=== PATIENT | female | born 1995 | race Caucasian/White ===

== ENCOUNTER 2020-09-22 13:32 | Outpatient (CLI) | payer OTHER, SELFPAY ==
[2020-09-22 14:31] LABS: Basophils Percent Auto 0.5 % (0.2-1.2); Eosinophils Absolute Auto 0.2 K/mm3 (0-0.3); Eosinophils Percent Auto 1.9 % (0-4.4); Hematocrit 39.4 % (37.0-47.0); Hemoglobin 13.2 g/dL (12.0-15.0); Immature Granulocyte Absolute 0.02 K/mm3 (0.00-0.031); Immature Granulocyte Percent A 0.2 % (0-0.5); Lymphocytes Absolute Auto 2.38 K/mm3 (0.9-3.2); Lymphocytes Percent Auto 29.5 % (18.3-44.2); Mean Corpuscular HGB Conc 33.5 g/dl (32-36); Mean Corpuscular Hemoglobin 29.9 pg (26-34); Mean Corpuscular Volume 89.1 fl (80-100); Mean Platelet Volume 9.5 fl (7.4-10.4); Monocytes Absolute Auto 0.5 K/mm3 (0.1-0.6); Neutrophils Percent Auto 61.9 % (45.5-73.1); Platelet Count Result 250 k/mm3 (150-375); Red Blood Count 4.42 M/mm3 (4.2-5.4); Red Cell Distribution Width 12.8 % (11.5-14.5); White Blood Count 8.1 K/mm3 (4.5-10.0)
[2020-09-22 14:35] LABS: Alanine Aminotransferase 52 U/L (4-35); Albumin Level 4.1 g/dL (3.5-5.1); Alkaline Phosphatase 99 U/L (38-126); Anion Gap 6 mmol/L (8-16); Aspartate Amino Transferase 38 U/L (14-36); Bilirubin,Total 0.5 mg/dL (0.2-1.3); Blood Urea Nitrogen 14 mg/dL (7-17); Calcium 8.6 mg/dL (8.4-10.2); Carbon Dioxide 30 mmol/L (22-30); Chloride 105 mmol/L (98-107); Cholesterol 192 mg/dL (0-200); Estimated Glomerular Filt Rate > 60; Glucose 102 mg/dL (65-105); HDL Direct 59 mg/dL; Sodium 141 mmol/L (137-145); Triglycerides 95 mg/dL (<150)
[2020-09-22 14:46] LABS: LDL Cholesterol Direct 105 mg/dL
[2020-09-22 15:26] LABS: Vitamin D 25 Hydroxy 55.1 ng/mL
== END 2020-09-22 13:33 | disposition home or self-care (01) ==
LOC: ANHLAB 13:35
PROVIDERS: PCP Family Medicine; Visit Provider Obstetrics & Gynecology
DX: Z01.419 Encounter for gynecological examination (general) (routine) without abnormal findings (principal)
CPT/HCPCS: 36415; 80053; 80061; 82306; 85025

== ENCOUNTER 2020-10-10 09:29 | Outpatient (CLI) | payer OTHER, SELFPAY ==
[2020-10-10 09:54] LABS: Alanine Aminotransferase 19 U/L (4-35); Albumin Level 4.1 g/dL (3.5-5.1); Alkaline Phosphatase 89 U/L (38-126); Aspartate Amino Transferase 26 U/L (14-36); Bilirubin,Total 0.8 mg/dL (0.2-1.3)
[2020-10-10 11:13] LABS: Hepatitis B Surface Antigen Negative (Negative)
[2020-10-10 11:31] LABS: Hepatitis C Virus Antibody Negative (Negative)
== END 2020-10-10 09:30 | disposition home or self-care (01) ==
PROVIDERS: PCP Family Medicine; Visit Provider Obstetrics & Gynecology
DX: R79.89 Other specified abnormal findings of blood chemistry (principal)
CPT/HCPCS: 36415; 80076; 86803; 87340

== ENCOUNTER 2021-05-19 15:07 | Outpatient (CLI) | payer OTHER, SELFPAY ==
--- NOTE | ~2021-05-19 | US_ITS ---
CORRECTED REPORT EXAMINATION CHANGED TO US OB <= 14 weeks fetus. 06/13/2021 [facility] [place]: US OB <=14 wk fetus DATE: 05/19/2021 16:02 INDICATION: with inconclusive viability during first trimester TECHNIQUE: Real-time pelvic ultrasound utilizing transabdominal probe was performed. The interpreting radiologist was not present for the study. COMPARISON: None. FINDINGS: The uterus measures 12.4 x 6.7 x 5.3 cm. There is an intrauterine gestational sac. A yolk sac and pole are identified. The crown rump length measures 2.5 cm, which correlates with an estimated gestational age of 9 weeks and 1 days. heart motion is identified measuring 179 beats per minute (bpm) by M-mode Doppler. The right ovary measures 3.2 x 2.1 x 2.1 cm. The left ovary measures 3.6 x 2.3 x 1.4 cm. Bilateral anechoic ovarian cysts/follicles measuring 1.7 cm in maximal diameter on the right and 1.5 cm on the left. There is no free fluid in the pelvis. IMPRESSION: 1. Single living fetus with heart rate of 179 bpm. 2. Gestational age by ultrasound of 9 weeks 1 day(s) +/- 6 day(s) with ultrasound estimated date of delivery (ANJU) of 12/21/2021. Reviewed, dictated and finalized at location A. MTDD IMPRESSION: 1. Single living fetus with heart rate of 179 bpm. 2. Gestational age by ultrasound of 9 weeks 1 day(s) +/- 6 day(s) with ultraso und estimated date of delivery (ANJU) of 12/21/2021.
== END 2021-05-19 15:08 | disposition home or self-care (01) ==
LOC: ANHIMG 15:08
PROVIDERS: PCP Family Medicine; Visit Provider Obstetrics & Gynecology
DX: O36.80X0 Pregnancy with inconclusive fetal viability, not applicable or unspecified (principal); Z3A.09 9 weeks gestation of pregnancy
CPT/HCPCS: 76801; 76817

== ENCOUNTER 2021-09-17 07:44 | Outpatient (RCR) | payer OTHER, SELFPAY ==
[2021-09-15 12:10] LABS: Basophils Percent Auto 0.2 % (0.2-1.2); Eosinophils Percent Auto 0.3 % (0-4.4); Hematocrit 35.1 % (37.0-47.0); Hemoglobin 11.5 g/dL (12.0-15.0); Immature Granulocyte Absolute 0.06 K/mm3 (0.00-0.031); Immature Granulocyte Percent A 0.6 % (0-0.5); Lymphocytes Absolute Auto 1.66 K/mm3 (0.9-3.2); Lymphocytes Percent Auto 15.5 % (18.3-44.2); Mean Corpuscular HGB Conc 32.8 g/dl (32-36); Mean Corpuscular Hemoglobin 30.9 pg (26-34); Mean Corpuscular Volume 94.4 fl (80-100); Mean Platelet Volume 9.7 fl (7.4-10.4); Monocytes Absolute Auto 0.6 K/mm3 (0.1-0.6); Monocytes Percent Auto 5.3 % (2.6-8.5); Neutrophils Absolute Auto 8.4 K/mm3 (1.3-6.7); Neutrophils Percent Auto 78.1 % (45.5-73.1); Platelet Count Result 175 k/mm3 (150-375); Red Blood Count 3.72 M/mm3 (4.2-5.4); Red Cell Distribution Width 13.3 % (11.5-14.5); White Blood Count 10.7 K/mm3 (4.5-10.0)
[2021-09-15 12:20] LABS: Glucose 1 Hour PP 50gm Dose 171 mg/dL
[2021-09-17] MEDS: RHO(D) IMMUNE GLOBULIN 300 MCG/2 ML SYRINGE IM (12:25)
== END 2021-09-17 07:45 | disposition home or self-care (01) ==
LOC: ANHLAB 07:44
PROVIDERS: PCP Family Medicine; Visit Provider Obstetrics & Gynecology
DX: Z29.13 Encounter for prophylactic Rho(D) immune globulin (principal); O36.0190 Maternal care for anti-D [Rh] antibodies, unspecified trimester, not applicable or unspecified; Z3A.00 Weeks of gestation of pregnancy not specified
CPT/HCPCS: 36415; 82947; 85025; 85461; 90384; 96372; J2790

== ENCOUNTER 2021-09-19 07:59 | Outpatient (CLI) | payer OTHER, SELFPAY ==
[2021-09-19 08:35] LABS: Glucose Fasting Gestational 74 mg/dL (>/=95)
[2021-09-19 10:12] LABS: Glucose 1 Hour Gest 212 mg/dL (>/=180)
[2021-09-19 11:09] LABS: Glucose 2 Hour Gest 182 mg/dL (>/= 155)
[2021-09-19 11:51] LABS: Glucose 3 Hour Gest 117 mg/dL (>/=140)
== END 2021-09-19 08:00 | disposition home or self-care (01) ==
PROVIDERS: PCP Family Medicine; Visit Provider Obstetrics & Gynecology
DX: R73.09 Other abnormal glucose (principal)
CPT/HCPCS: 36415; 82951; 82952

== ENCOUNTER 2021-10-06 13:00 | Outpatient (RCR) | payer OTHER, SELFPAY ==
[2021-10-05 14:20] VITALS: BMI 25.9
[2021-10-05 14:23] VITALS: BMI 25.9
== END 2021-12-07 10:27 | disposition home or self-care (01) ==
LOC: ANHDMC 13:00
PROVIDERS: PCP Family Medicine; Visit Provider Obstetrics & Gynecology
DX: O24.419 Gestational diabetes mellitus in pregnancy, unspecified control (principal); Z3A.00 Weeks of gestation of pregnancy not specified; Z71.3 Dietary counseling and surveillance; Z71.89 Other specified counseling
CPT/HCPCS: 97802; G0108

== ENCOUNTER 2021-10-12 11:38 | Outpatient (CLI) | payer OTHER, SELFPAY ==
[2021-10-14 14:16] LABS: NIL 0.01 IU/mL; Quantiferon TB Plus, 1T NEGATIVE (NEGATIVE)
== END 2021-10-12 11:39 | disposition home or self-care (01) ==
LOC: ANHLAB 11:41
PROVIDERS: PCP Family Medicine; Visit Provider Family Medicine
DX: Z02.0 Encounter for examination for admission to educational institution (principal); Z11.1 Encounter for screening for respiratory tuberculosis
CPT/HCPCS: 36415; 86480

== ENCOUNTER 2021-11-28 14:15 | Outpatient (CLI) | payer OTHER, SELFPAY ==
[2021-11-28 14:41] LABS: Basophils Percent Auto 0.2 % (0.2-1.2); Eosinophils Percent Auto 0.4 % (0-4.4); Hematocrit 35.5 % (37.0-47.0); Hemoglobin 11.5 g/dL (12.0-15.0); Immature Granulocyte Absolute 0.08 K/mm3 (0.00-0.031); Immature Granulocyte Percent A 0.8 % (0-0.5); Lymphocytes Absolute Auto 1.75 K/mm3 (0.9-3.2); Lymphocytes Percent Auto 18.3 % (18.3-44.2); Mean Corpuscular HGB Conc 32.4 g/dl (32-36); Mean Corpuscular Hemoglobin 29.4 pg (26-34); Mean Corpuscular Volume 90.8 fl (80-100); Mean Platelet Volume 10.7 fl (7.4-10.4); Monocytes Absolute Auto 0.8 K/mm3 (0.1-0.6); Monocytes Percent Auto 7.9 % (2.6-8.5); Neutrophils Absolute Auto 6.9 K/mm3 (1.3-6.7); Neutrophils Percent Auto 72.4 % (45.5-73.1); Platelet Count Result 155 k/mm3 (150-375); Red Blood Count 3.91 M/mm3 (4.2-5.4); White Blood Count 9.5 K/mm3 (4.5-10.0)
[2021-11-28 15:26] LABS: HIV 1/2 Ab P24 Ag Result Negative (Negative)
[2021-11-29 11:53] LABS: Rapid Plasma Reagin Non-Reactive (NonReactive)
== END 2021-11-28 14:16 | disposition home or self-care (01) ==
LOC: ANHLAB 14:17
PROVIDERS: PCP Family Medicine; Visit Provider Obstetrics & Gynecology
DX: Z34.93 Encounter for supervision of normal pregnancy, unspecified, third trimester (principal); Z3A.35 35 weeks gestation of pregnancy
CPT/HCPCS: 36415; 85025; 86592; 86703; G0432

== ENCOUNTER 2021-12-03 07:48 | Outpatient (RCR) | payer OTHER, SELFPAY ==
--- NOTE | 2021-10-19 10:16 | PC.NURSE ---
Dr Villegas notified of decel. Tracing faxed to office for review. US orders received.
--- NOTE | 2021-10-19 11:40 | PC.NURSE ---
Patient turned to L side, monitor adj.
--- NOTE | 2021-10-19 11:42 | PC.NURSE ---
Dr Villegas notified of US results and current tracing. Will pull it up in office and review.
[2021-10-19 11:55] VITALS: BP 147/78; PULSE 82
--- NOTE | 2021-10-19 11:55 | PC.NURSE ---
Dr Villegas here to see patient, tracing reviewed. Patient taken off monitor by Dr Villegas. Ok to dc patient home. Patient to have repeat NST on Saturday.
[2021-10-24 08:20] VITALS: BP 122/63; PULSE 93
[2021-11-28 16:18] VITALS: BP 119/69; PULSE 73
[2021-12-01 14:05] VITALS: BP 114/61; PULSE 70
--- NOTE | ~2021-12-03 | US_ITS ---
EXAMINATION: US OB limited w BPP EXAM DATE: 10/19/2021 11:21 INDICATION: BPP and KIMBERLY, low baseline in office 3rd trimester. TECHNIQUE: Pelvic obstetrical transabdominal sonogram was performed by a technologist. There are mu ltiple grayscale and Doppler images available for interpretation. Comparison is made to prior examina tion from 05/19/2021. FINDINGS: There is a single fetus identified in vertex presentation with a heart rate of 142 beats pe r minute. The placenta is located in the anterior position. There is no sonographic evidence of retr oplacental hemorrhage identified. The amniotic fluid index is 13.2 centimeters, which is normal. BIOPHYSICAL PROFILE (performed by the technologist) breathing (30 sec sustained breathing in 30 minutes): 2 out of 2 movement (3 gross body movements in 30 minutes): 2 out of 2 tone (one episode of vnjfelo-qizxnulrz-rtkjeip limb movement): 2 out of 2 Amniotic fluid pocket (2 cm): 2 out of 2 Total score: 8 out of 8 IMPRESSION: 1. Single fetus with heart rate of 142 bpm. 2. Normal biophysical profile score of 8 out of 8. 3. Normal KIMBERLY 13.2 cm. Reviewed, dictated and finalized at location A.
--- NOTE | ~2021-12-03 | US_ITS ---
EXAMINATION: US OB limited w BPP DATE: 12/01/2021 13:30 INDICATION: Nonreactive nonstress test. Third trimester. TECHNIQUE: Real-time pelvic ultrasound was performed. COMPARISON: Ultrasound 11/28/2021 FINDINGS: There is a single living fetus in vertex presentation. The placenta is fundal. heart rate is 1 48 beats per minute (bpm). The amniotic fluid index is 12.4 cm, which is normal. Biophysical profile performed by the technologist: breathing (30 sec sustained breathing in 30 minutes): 2 out of 2 movement (3 gross body movements in 30 minutes): 2 out of 2 tone (one episode of czqdxvz-mhmlahlef-xpttxdh limb movement): 2 out of 2 Amniotic fluid pocket (2 cm): 2 out of 2 Total score: 8 out of 8 IMPRESSION: 1. Single living fetus in vertex presentation. 2. Biophysical profile 8 out of 8. Reviewed, dictated and finalized at location A.
--- NOTE | ~2021-12-03 | US_ITS ---
EXAMINATION: US OB BPP wo non-stress DATE: 11/28/2021 18:17 INDICATION: Decreased movement. TECHNIQUE: Real-time ultrasound of the pelvis was performed. COMPARISON: None. FINDINGS: There is a single living fetus in vertex presentation. The placenta is anterior and well clear of th e cervical os. heart rate is 154 beats per minute (bpm). The amniotic fluid index is 6.8 cm, wh ich is low.] Biophysical profile performed by the technologist: breathing (30 sec sustained breathing in 30 minutes): 2 out of 2 movement (3 gross body movements in 30 minutes: 2 out of 2 tone (one episode of jxrpfev-bnhitswwx-klptpic limb movement): 2 out of 2 Amniotic fluid pocket (2 cm): 2 out of 2 Total score: 8 out of 8 IMPRESSION: 1. Single living fetus in vertex presentation.] 2. Anterior placenta. 3. Biophysical profile 8 out of 8. 4. Low KIMBERLY of 6.8 cm. Reviewed, dictated and finalized at location K.
[2021-12-03 08:19] LABS: Basophils Percent Auto 0.3 % (0.2-1.2); Eosinophils Absolute Auto 0.1 K/mm3 (0-0.3); Eosinophils Percent Auto 0.9 % (0-4.4); Hematocrit 35.1 % (37.0-47.0); Hemoglobin 11.2 g/dL (12.0-15.0); Immature Granulocyte Absolute 0.07 K/mm3 (0.00-0.031); Immature Granulocyte Percent A 0.7 % (0-0.5); Lymphocytes Absolute Auto 2.24 K/mm3 (0.9-3.2); Lymphocytes Percent Auto 21.2 % (18.3-44.2); Mean Corpuscular HGB Conc 31.9 g/dl (32-36); Mean Corpuscular Hemoglobin 29.2 pg (26-34); Mean Corpuscular Volume 91.6 fl (80-100); Monocytes Absolute Auto 0.7 K/mm3 (0.1-0.6); Monocytes Percent Auto 6.1 % (2.6-8.5); Neutrophils Absolute Auto 7.5 K/mm3 (1.3-6.7); Neutrophils Percent Auto 70.8 % (45.5-73.1); Platelet Count Result 155 k/mm3 (150-375); Red Blood Count 3.83 M/mm3 (4.2-5.4); Red Cell Distribution Width 13.1 % (11.5-14.5); White Blood Count 10.6 K/mm3 (4.5-10.0)
[2021-12-03 08:25] VITALS: BP 124/74; PULSE 80
[2021-12-03 08:29] LABS: Alanine Aminotransferase 104 U/L (6-35); Albumin Level 3.1 g/dL (3.5-5.1); Alkaline Phosphatase 231 U/L (38-126); Anion Gap 9 mmol/L (8-16); Aspartate Amino Transferase 59 U/L (14-36); Bilirubin,Total 0.7 mg/dL (0.2-1.3); Blood Urea Nitrogen 8 mg/dL (7-17); Calcium 8.5 mg/dL (8.4-10.2); Carbon Dioxide 24 mmol/L (22-30); Chloride 105 mmol/L (98-107); Estimated Glomerular Filt Rate > 60; Glucose 96 mg/dL (65-110); Potassium 3.4 mmol/L (3.4-5.0); Sodium 138 mmol/L (137-145); Uric Acid 4.4 mg/dL (2.5-7.5)
--- NOTE | 2021-12-03 08:39 | PC.NURSE ---
Dr. Villegas updated on pt labs. calling in prescription to [facility]. Dr. Villegas ordered pt to have NST twice a week. KIMBERLY and Labs redrawn on Sat when she comes in for NST. No other new orders.
[2021-12-12 20:47] LABS: Chenodeoxycholic Acid 14.1 umol/L (< OR = 3.9); Deoxycholic Acid 0.6 umol/L (< OR = 2.3); Total Bile Acids 52.8 umol/L (< OR = 8.3)
== END 2021-12-22 10:19 | disposition home or self-care (01) ==
LOC: ANHOBOP 07:48
PROVIDERS: PCP Family Medicine; Visit Provider Obstetrics & Gynecology
DX: O28.8 Other abnormal findings on antenatal screening of mother (principal); O43.193 Other malformation of placenta, third trimester; Z3A.00 Weeks of gestation of pregnancy not specified
CPT/HCPCS: 36415; 59025; 76815; 76819; 80053; 82542; 84550; 85025

== ENCOUNTER 2021-12-05 12:15 | Inpatient (IN) | payer OTHER, SELFPAY ==
[2021-12-05] VITALS (73 sets, daily range): BP systolic 90–135; BP diastolic 45–89; PULSE 59–96; TEMP 36.2–36.7; O2SAT 93–100; BMI 27.7
[2021-12-05 13:00] LABS: Basophils Percent Auto 0.2 % (0.2-1.2); Eosinophils Percent Auto 0.2 % (0-4.4); Hematocrit 39.5 % (37.0-47.0); Hemoglobin 12.9 g/dL (12.0-15.0); Immature Granulocyte Absolute 0.06 K/mm3 (0.00-0.031); Immature Granulocyte Percent A 0.6 % (0-0.5); Lymphocytes Percent Auto 14.4 % (18.3-44.2); Mean Corpuscular HGB Conc 32.7 g/dl (32-36); Mean Corpuscular Hemoglobin 29.2 pg (26-34); Mean Corpuscular Volume 89.4 fl (80-100); Mean Platelet Volume 10.7 fl (7.4-10.4); Monocytes Absolute Auto 0.5 K/mm3 (0.1-0.6); Monocytes Percent Auto 5.5 % (2.6-8.5); Neutrophils Absolute Auto 7.7 K/mm3 (1.3-6.7); Neutrophils Percent Auto 79.1 % (45.5-73.1); Platelet Count Result 202 k/mm3 (150-375); Red Blood Count 4.42 M/mm3 (4.2-5.4); Red Cell Distribution Width 13.4 % (11.5-14.5); White Blood Count 9.8 K/mm3 (4.5-10.0)
[2021-12-05 13:14] LABS: Alanine Aminotransferase 217 U/L (6-35); Albumin Level 3.8 g/dL (3.5-5.1); Alkaline Phosphatase 316 U/L (38-126); Anion Gap -5 mmol/L (8-16); Aspartate Amino Transferase 120 U/L (14-36); Bilirubin,Total 1.1 mg/dL (0.2-1.3); Blood Urea Nitrogen 7 mg/dL (7-17); Calcium 8.5 mg/dL (8.4-10.2); Carbon Dioxide 36 mmol/L (22-30); Chloride 103 mmol/L (98-107); Estimated Glomerular Filt Rate > 60; Glucose 81 mg/dL (65-110); Potassium 3.4 mmol/L (3.4-5.0); Sodium 134 mmol/L (137-145)
[2021-12-05] MEDS: DINOPROSTONE 10 MG VAG INSERT VAGINAL (13:17)
--- NOTE | 2021-12-05 13:22 | LDADM ---
This patient, Aby Domingo, was admitted to Labor/Delivery/Recovery 109 on 12/05/21 at 12:15. Plans for labor, pain management and were discussed with patient. Patient/family oriented to hospital policies and general routines including ID bracelet, bed and alarms, visiting hours, pain management, procedures, bathroom and other care routines, personal items, smoking policy, room service/diet and guest tray routines, security routines, and visiting hours. Patient/Family are encouraged to report perceived risks to care and to ask questions if they do not understand what they are told or what they should do. See OBIX for further documentation.
[2021-12-05] MEDS: LACTATED RINGERS 1,000 ML 125 ML IV CONT ×2 (13:41→21:52)
[2021-12-05] MEDS: AMPICILLIN 2 GM/NS 100 ML 2 GM/100 ML BAG IVPB (13:42)
--- NOTE | 2021-12-05 16:42 | WPDANESEPP ---
Anes - Eval Pre Procedure Procedure: labor epidural Date/Time: 12/05/21 16:42 Surgeon: elmer Pre Op Diagnosis: Induction of Labor Patient Data Age: 26 Gender: F Height: 1.6 m Weight: 71 kg Last Vital Signs Temp 36.4 C 12/05/21 13:30 Pulse 75 12/05/21 13:30 BP 110/46 L 12/05/21 13:30 O2 Del Method Room Air 12/05/21 13:20 Allergies Allergy/AdvReac Type Severity Reaction Status Date / Time No Known Allergies Allergy Verified 11/28/21 14:45 Home Medications Medication Instructions Recorded Confirmed Type vitamin no.102-iron 90 1 cap PO DAILY #90 caps 05/03/21 12/05/21 Rx mg-folate 1 mg-dha 200 mg capsule blood-glucose meter (OneTouch #1 ea 09/22/21 11/23/21 Rx Verio Meter) blood sugar diagnostic (OneTouch #100 ea 10/16/21 11/23/21 Rx Verio test strips) lancets 30 gauge (OneTouch Delica #100 ea 11/02/21 11/23/21 Rx Lancets) ursodiol 300 mg capsule 300 mg PO BID #30 caps 12/03/21 12/05/21 Rx Laboratory Tests 12/05/21 12/05/21 12/05/21 12:48 12:48 12:48 WBC 9.8 K/mm3 K/mm3 (4.5-10.0) RBC 4.42 M/mm3 M/mm3 (4.2-5.4) Hgb 12.9 g/dL g/dL (12.0-15.0) Hct 39.5 % % (37.0-47.0) MCV 89.4 fl fl (80-100) MCH 29.2 pg pg (26-34) MCHC 32.7 g/dl g/dl (32-36) RDW 13.4 % % (11.5-14.5) Plt Count 202 k/mm3 k/mm3 (150-375) MPV 10.7 fl H fl (7.4-10.4) Immature Gran % (Auto) 0.6 % H % (0-0.5) Neut % (Auto) 79.1 % H % (45.5-73.1) Lymph % (Auto) 14.4 % L % (18.3-44.2) [place] % (Auto) 5.5 % % (2.6-8.5) Eos % (Auto) 0.2 % % (0-4.4) Baso % (Auto) 0.2 % % (0.2-1.2) Lymph # (Auto) 1.40 K/mm3 K/mm3 (0.9-3.2) [place] # (Auto) 0.5 K/mm3 K/mm3 (0.1-0.6) Eos # (Auto) 0.0 K/mm3 K/mm3 (0-0.3) Baso # (Auto) 0.0 K/mm3 K/mm3 (0.0-0.1) Abs Immat Gran (auto) 0.06 K/mm3 H K/mm3 (0.00-0.031) Absolute Neuts (auto) 7.7 K/mm3 H K/mm3 (1.3-6.7) Absolute Nucleated RBC 0.0 K/mm3 K/mm3 (0.0-0.012) Nucleated RBC % 0.0 % % (0.0-0.2) Sodium Potassium Chloride Carbon Dioxide Anion Gap BUN Creatinine Estim Creat Clear Calc Estimated GFR Glucose Calcium Total Bilirubin AST ALT Alkaline Phosphatase Total Protein Albumin RPR Pending Blood Type O Negative Antibody Screen Negative 12/05/21 12:48 WBC RBC Hgb Hct MCV MCH MCHC RDW Plt Count MPV Immature Gran % (Auto) Neut % (Auto) Lymph % (Auto) [place] % (Auto) Eos % (Auto) Baso % (Auto) Lymph # (Auto) [place] # (Auto) Eos # (Auto) Baso # (Auto) Abs Immat Gran (auto) Absolute Neuts (auto) Absolute Nucleated RBC Nucleated RBC % Sodium 134 mmol/L L mmol/L (137-145) Potassium 3.4 mmol/L mmol/L (3.4-5.0) Chloride 103 mmol/L mmol/L (98-107) Carbon Dioxide 36 mmol/L H mmol/L (22-30) Anion Gap -5 mmol/L L mmol/L (8-16) BUN 7 mg/dL mg/dL (7-17) Creatinine 0.70 mg/dL mg/dL (0.7-1.0) Estim Creat Clear Calc Not Reportable Estimated GFR > 60 (59 - ) Glucose 81 mg/dL mg/dL (65-110) Calcium 8.5 mg/dL mg/dL (8.4-10.2) Total Bilirubin 1.1 mg/dL mg/dL (0.2-1.3) AST 120 U/L H U/L (14-36) ALT 217 U/L H U/L (6-35) Alkaline Phosphatase 316 U/L H U/L (38-126) Total Protein 7.0 g/dL g/dL (6.3-8.2) Albumin 3.8 g/dL g/dL (3.5-5.1) RPR Blood Type Antibody Screen Patient hx anesthesia problems: none
[2021-12-05] MEDS: AMPICILLIN 1 GM/NS 50 ML 1 GM/50 ML BAG IVPB ×2 (17:49→21:52)
[2021-12-05] MEDS: OXYTOCIN 30 UNITS/NS 500 ML 30 UNITS/500 ML BAG 6 UNITS IV CONT (18:24)
[2021-12-05 22:12] LABS: Glucose Point of Care 74 mg/dl (65-105)
--- NOTE | 2021-12-05 23:51 | PM.IMHP ---
H&P: HPI History of Present Illness Date/Time: 12/05/21 23:51 Chief Complaint: Cholestasis of Narrative: Patient is a G1 at 37 6/7 weeks by LMP 03/15 2021 with an EDC 12/20/2021 consistent with a 9 week ultrasound. PNC significant for diet controlled gestational diabetes. She started having itching on feets and hands a weeks ago which had increased over the past week. She had labs drawn this weekend and LFT were elevated. Bile acids pending. She was prescribed ursodial. Patient admitted for [facility] at 37 6/7 weeks for cholestasis of based on clinical symptoms and elevated liver function test. Labs reviewed. GBS positive. Review of Systems Review of Systems: All systems reviewed & are unremarkable except as noted in HPI and below Constitutional: Constitutional: Reports no additional constitutional complaints and Denies headache(s) Eyes: Eyes: Denies spots in vision ENT: Reports system reviewed and no additional complaints, except as documented and Denies headache(s) Cardiovascular: Cardiovascular: Denies chest pain and Denies dyspnea Respiratory: Respiratory: Denies dyspnea Gastrointestinal: Gastrointestinal: Reports no additional gastrointestinal complaints Genitourinary: Genitourinary: Reports amenorrhea Musculoskeletal: Musculoskeletal: Reports no additional musculoskeletal complaints Integumentary/Breasts: Skin/Breast: Denies breast mass and Denies rash Neurologic: Denies headache(s) Psychiatric: Psychiatric: Reports no additional psychiatric complaints [facility] Surgical History Surgical History Waterfall teeth removed Family History Family History Mother Family history of mental disorder Sibling Family history of mental disorder Asthma Grandparent Hypertension Family history of malignant neoplasm of breast Social History Social History Smoking status: Never smoker Second hand tobacco smoke exposure: No Alcohol intake: never Substance use: never Spiritual care concerns: No Meds Home Medications and Allergies Home Medications Medication Instructions Recorded Confirmed Type vitamin no.102-iron 90 1 cap PO DAILY #90 caps 05/03/21 12/05/21 Rx mg-folate 1 mg-dha 200 mg capsule blood-glucose meter (OneTouch #1 ea 09/22/21 12/06/21 Rx Verio Meter) blood sugar diagnostic (BillieTouch #100 ea 10/16/21 12/06/21 Rx Verio test strips) lancets 30 gauge (OneTouch Violet #100 ea 11/02/21 12/06/21 Rx Lancets) ursodiol 300 mg capsule 300 mg PO BID #30 caps 12/03/21 12/05/21 Rx Allergies Allergy/AdvReac Type Severity Reaction Status Date / Time No Known Allergies Allergy Verified 11/28/21 14:45 Vital Signs Vital Signs - 24 hr 12/05/21 13:20 12/05/21 13:17 12/05/21 13:30 Temperature 97.6 F Pulse Rate 73 75 Blood Pressure 122/67 110/46 L Pulse Oximetry Oxygen Delivery Room Air 12/05/21 20:26 12/05/21 20:28 12/05/21 20:30 Temperature Pulse Rate 75 70 Blood Pressure 131/72 135/75 Pulse Oximetry 100 Oxygen Delivery 12/05/21 20:33 12/05/21 20:34 12/05/21 20:36 Temperature Pulse Rate 76 80 Blood Pressure 90/67 L 119/82 Pulse Oximetry 100 Oxygen Delivery 12/05/21 20:38 12/05/21 20:39 12/05/21 20:41 Temperature Pulse Rate 89 78 Blood Pressure 126/76 105/77 Pulse Oximetry 100 Oxygen Delivery 12/05/21 20:43 12/05/21 20:45 12/05/21 20:47 Temperature Pulse Rate 72 68 72 Blood Pressure 125/65 125/60 126/57 L Pulse Oximetry 96 Oxygen Delivery 12/05/21 20:48 12/05/21 20:51 12/05/21 20:52 Temperature Pulse Rate 72 94 Blood Pressure 113/51 L 102/58 L Pulse Oximetry 100 100 93 Oxygen Delivery 12/05/21 20:54 12/05/21 20:57 12/05/21 21:00 Temperature Pulse Rate 83 71 66 Blood Pressure 107/51 L
[2021-12-06] VITALS (133 sets, daily range): BP systolic 95–134; BP diastolic 41–92; PULSE 61–142; RESP 16–18; TEMP 36.4–36.8; O2SAT 91–100
[2021-12-06] MEDS: AMPICILLIN 1 GM/NS 50 ML 1 GM/50 ML BAG IVPB (01:55)
--- NOTE | 2021-12-06 06:19 | PM.OBPRVD ---
OB - Delivery Note Procedure Delivery date: 12/06/21 Procedure: Spontaneous vaginal delivery Events: Gestational Diabetes and Other (cholestasis of ) Induction method: Per Misoprostol Protocol and Per Pitocin Protocol Delivery augmentation: Rupture of Membranes Delivery monitor: External FHT and External Uterine Route of delivery: Laceration Description: None Quantitative Blood Loss (ml): 150 Anesthesia type: Epidural Disposition: Floor Narrative: Patient admitted for [facility] due to cholestasis. Cervix 1.5/50/-3. Cervidil was placed. She was checked at approximately 1630 and cervix was 1.5/70/-2 AROM clear. Cervidil removed. She had pitocin augmentation. She did get an IUPC placed to better assess contractions and adjust Pitocin. She did progress into active labor. She did get an epidural upon request. She was initially called closed but after pushing there was noted to be an anterior rim of the cervix , this was reduced, position was LOP and at +1. At that time she did not have adequate epidural analgesia relief. Anesthesia service did evaluate patient and adjusted her epidural dose. She did get better analgesia. She started pushing after 30 minutes of improved analgesia. She delivered a female over intact perineum. There was a tight nuchal cord which was surgically reduced. 's nose and mouth suctioned at perineum. Infant placed on maternal abdomen crying. Pitocin started. Placenta delivered spontaneously and intact. No lacerations. Patient tolerated procedure well. [place] Baby Date of : 12/06/21 Time of : 06:02 Weeks of gestation at delivery: 38 gender: Female Weight (pounds): 6 Weight (ounces): 7 presentation: vertex position: Right Occiput Posterior Placenta delivery description: Spontaneous Cord Vessel Description: 3 Vessels, Nuchal Cord (x1 surgically reduced) and Tight score one minute: 9 score five minutes: 9
--- NOTE | 2021-12-06 06:21 | P.PNOB_ITS ---
OB - PN: Subj Subjective Date/time seen: 12/06/21 0345 Called for delivery. When I arrived. Patient pushing. On exam, station +1, ant rim reduced with pushing, OP. She had an area that was not well anesthesized. She was recommended to stop pushing. Anesthesia was called for evaluation for pain control. She was allowed to labor for descent. OB - PN: Obj Data Labs CBC & Chem 7: 12/05/21 12:48 12/05/21 12:48 Labs: Laboratory Results - last 24 hr 12/05/21 12/05/21 12/05/21 12:48 12:48 12:48 WBC 9.8 RBC 4.42 Hgb 12.9 Hct 39.5 MCV 89.4 MCH 29.2 MCHC 32.7 RDW 13.4 Plt Count 202 MPV 10.7 H Immature Gran % (Auto) 0.6 H Neut % (Auto) 79.1 H Lymph % (Auto) 14.4 L [place] % (Auto) 5.5 Eos % (Auto) 0.2 Baso % (Auto) 0.2 Lymph # (Auto) 1.40 [place] # (Auto) 0.5 Eos # (Auto) 0.0 Baso # (Auto) 0.0 Abs Immat Gran (auto) 0.06 H Absolute Neuts (auto) 7.7 H Absolute Nucleated RBC 0.0 Nucleated RBC % 0.0 Sodium 134 L Potassium 3.4 Chloride 103 Carbon Dioxide 36 H Anion Gap -5 L BUN 7 Creatinine 0.70 Estim Creat Clear Calc Not Reportable Estimated GFR > 60 Glucose 81 POC Capillary Glucose Calcium 8.5 Total Bilirubin 1.1 AST 120 H ALT 217 H Alkaline Phosphatase 316 H Total Protein 7.0 Albumin 3.8 Blood Type O Negative Antibody Screen Negative 12/05/21 21:51 WBC RBC Hgb Hct MCV MCH MCHC RDW Plt Count MPV Immature Gran % (Auto) Neut % (Auto) Lymph % (Auto) [place] % (Auto) Eos % (Auto) Baso % (Auto) Lymph # (Auto) [place] # (Auto) Eos # (Auto) Baso # (Auto) Abs Immat Gran (auto) Absolute Neuts (auto) Absolute Nucleated RBC Nucleated RBC % Sodium Potassium Chloride Carbon Dioxide Anion Gap BUN Creatinine Estim Creat Clear Calc Estimated GFR Glucose POC Capillary Glucose 74 Calcium Total Bilirubin AST ALT Alkaline Phosphatase Total Protein Albumin Blood Type Antibody Screen OB - PN A/P Time Spent With Patient Time: Total time spent is greater than 50% in coordination of care (as documented) at patient's floor/unit and/or counseling patient:
[2021-12-06] MEDS: OXYTOCIN 30 UNITS/NS 500 ML 30 UNITS/500 ML BAG 125 UNITS IV CONT (06:33)
[2021-12-06] MEDS: ACETAMINOPHEN 325 MG TABLET 650 MG PO ×2 (07:12→17:53)
--- NOTE | 2021-12-06 08:45 | OBPPTRN ---
Patient transferred to post room # 292 via wheelchair. PT and support person present and received instructions per one to one discussion, mom baby care and demonstrations this shift. Oriented to unit, room, information board, rooming in, admission packet and security measures. Patient verbalizes understanding and no barriers to learning identified at this time.
[2021-12-06] MEDS: MULTIVIT/MIN/PREN/FOL AC/IRON TABLET 1 TAB PO (11:24)
[2021-12-06] MEDS: IBUPROFEN 600 MG TABLET PO ×2 (11:24→17:54)
[2021-12-06] MEDS: POLYSACCHARIDE IRON COMPLEX 150 MG CAPSULE PO (11:25)
[2021-12-06] MEDS: DOCUSATE SODIUM 100 MG CAPSULE PO ×2 (11:25→17:54)
[2021-12-06 14:32] LABS: Rapid Plasma Reagin Non-Reactive (NonReactive)
--- NOTE | 2021-12-06 16:01 | PC.NURSE ---
[id number] Reported to RN that mother breastfed well downstairs. Introductions were made, then consulted with patient to assess needs related to . Mother led the conversation with her experience feeding her so far. Mother works well with her infant. Mother states infant was eager downstairs and latched well with a nipple shield provided while she was recovering in L&D. Reviewed good handwashing, cleaning the nipple shield and application. Discussed with mom the nipple shield precautions, possible complications associated with the risks and benefits. Reviewed practicing with a nipple shield, then without and how to protect the milk supply and production. Mom and baby guide referred to as a resource for using a nipple shield, out-patient services, community resources and when to call a provider. Mom voiced understanding of the importance of hand expression, nipple stimulation and initiating a pumping schedule if infant continues to nurse with the shield. Encouraged understanding of the benefits of skin to skin (unwrapping infant and placing vertically on her chest), responsive feeding and how to watch for early feeding signs, frequency of feeding on demand about every 8-12 times in 24 hours (every 2-3 hours), milk production, duration of feeding, signs of adequate intake/output and how to record on the feeding sheet. is sleepy and reluctant to breastfeed at this time. Mother states infant's blood sugar was high, an IV was started and just came back to her after being downstairs getting an IV and antibiotics. Mother declines pumping at this time and desires to hand express her milk and has colostrum stored in the refrigerator. Mother will hand express colostrum while dad is skin 2 skin with who is sleepy and reluctant to suck on a gloved finger. Reported to primary RN. [id number] Mother hand expressed 4 mls of colostrum and has fed ml to infant prior to calling RN for assistance. remains reluctant to wake up and to suck. Parents states she wasn't like this downstairs . Reviewed the journey of experiencing changes in feeding patterns/ behaviors and navigating responsive feeding. RN fed infant the rest of the colostrum while encouraging sucking on a gloved finger with chin support. Resources used to facilitate learning were used with the visual handouts/mom and baby guide. Mother voiced understanding of responsive feedings, stimulating with skin to skin, hand expressed colostrum, touch, talking to to encourage if it has been 2 -3 hours since the start of the last , to call if does not latch or there is discomfort with . Mother is planning to shower and rest, then attempt again later to breastfeed. Reported to the primary RN.
[2021-12-06] MEDS: LANOLIN (LANSINOH) 7.5 GM CREAM 1 APPLIC TOPICAL (17:40)
[2021-12-06] MEDS: ursodioL 300 MG CAPSULE PO (21:06)
[2021-12-07] VITALS: BP 112/62; PULSE 68; RESP 18; TEMP 36.4; O2SAT 98
[2021-12-07 04:03] VITALS: BP 125/67; PULSE 70; RESP 18; TEMP 36.2; O2SAT 99
[2021-12-07 05:24] LABS: Hematocrit 31.8 % (37.0-47.0); Hemoglobin 10.4 g/dL (12.0-15.0)
[2021-12-07 05:33] LABS: Alanine Aminotransferase 205 U/L (6-35); Alkaline Phosphatase 237 U/L (38-126); Aspartate Amino Transferase 97 U/L (14-36)
--- NOTE | 2021-12-07 08:00 | PC.NURSE ---
Pt introductions made and plan of care discussed per post , pain management, breast feeding, daily care activities and pending discharge to home. PT and support person present and received instructions per one to one discussion, mom baby care and demonstrations this shift. Oriented to unit, room, information board, rooming in, admission packet and security measures. Patient verbalizes understanding and no barriers to learning identified at this time.
[2021-12-07 08:40] VITALS: BP 121/79; PULSE 65; RESP 18; TEMP 36.4; O2SAT 99
[2021-12-07 09:00] VITALS: PULSE 65; RESP 18; O2SAT 99
[2021-12-07] MEDS: MULTIVIT/MIN/PREN/FOL AC/IRON TABLET 1 TAB PO (09:00)
--- NOTE | 2021-12-07 09:26 | WPDANLDPN2 ---
Anes-Prog Note L&D Date/Time: 12/07/21 09:26 Comfortable throughout: labor and delivery Neuraxial method: epidural Epidural/Spinal procedure site: clean & non-tender Neuro status: Neuro function grossly intact. Cardiovascular status: normal Respiratory status: normal Airway patency: baseline Mental status: baseline Post-Op hydration status: normal Vital Signs: Last Vital Signs Temp 36.2 C L 12/07/21 04:03 Pulse 70 12/07/21 04:03 Resp 18 12/07/21 04:03 BP 125/67 12/07/21 04:03 Pulse Ox 99 12/07/21 04:03 O2 Del Method Room Air 12/06/21 20:00 Pain score (VAS): 07/24 Post-procedural complaints: none Patient feedback: Patient satisfied with anesthetic care.
--- NOTE | 2021-12-07 12:29 | PM.OBPNVD ---
OB - PN: Subj Subjective Date/time seen: 12/07/21 0862 Patient comments: pain well controlled, tolerating diet and other (Decreasing lochia.) Welcome baby status: doing well and nursing well Welcome feeding status: exclusively breast feeding OB - PN: Obj Data Labs CBC & Chem 7: 12/07/21 03:17 12/05/21 12:48 Labs: Laboratory Results - last 24 hr 12/05/21 12/07/21 12/07/21 12:48 03:17 03:17 Hgb 10.4 L Hct 31.8 L AST 97 H ALT 205 H Alkaline Phosphatase 237 H RPR Non-reactive Blood Type Antibody Screen Screen Baby's Blood Type Baby's ROSALINE Doses of RhIg Required 12/07/21 03:17 Hgb Hct AST ALT Alkaline Phosphatase RPR Blood Type O Negative Antibody Screen TNP Screen Negative Baby's Blood Type O pos Baby's ROSALINE Positive Doses of RhIg Required 1 OB - PN A/P Assessment and Plan (1) Delivery normal: Code(s): O80 - Encounter for full-term uncomplicated delivery Status: Acute Plan day: 1 Plan: routine care Comments: Patient doing well. Time Spent With Patient Time: Total time spent is greater than 50% in coordination of care (as documented) at patient's floor/unit and/or counseling patient: Exam Psych: Affect: normal affect Other: Abd: fundus firm below umbilicus, nontender Ext: nontender
[2021-12-07] MEDS: ACETAMINOPHEN 325 MG TABLET 650 MG PO (15:52)
[2021-12-07] MEDS: DOCUSATE SODIUM 100 MG CAPSULE PO (15:53)
[2021-12-07] MEDS: IBUPROFEN 600 MG TABLET PO (15:53)
--- NOTE | 2021-12-07 16:02 | PC.NURSE ---
[id number] Consulted with patient to assess needs related to . Mother led conversation with her experience with feeding baby so far. Mother works well with her infant with encouragement. Infant was brought to mother after antibiotics in the nursery were administered by the primary RN. Mother states she had attempted to latch for about two hours. Reinforced calling for assistance with infant is there is no latching or she is having difficulty waking infant to feed. is sleeping and reluctant to breastfeed at this time. RN encouraged mother to feed the 5 mls of colostrum to her rather than store it in the refrigerator. RN fed the 5mls to infant. Mother voiced understanding of calling for assistance with . [id number] 1549 Mother is attempting to breastfeed and infant is frantic. Reviewed positioning and relaxation with working with . Father of baby is supportive. Reviewed working with infant, breast, nipples and how to protect the nipples with an optimal deep latch, good positioning, and good hand washing. Encouraged understanding the benefits of skin to skin, responding to feeding cues, frequencies of feeding 8-12 times in 24 hours (approximately 2-3 hours), duration of feedings, milk production, intake/output feeding sheet and signs of adequate intake encouraging swallowing at the breast. Reviewed positioning and alignment, supporting breast, off-centered (asymmetrical latch) and leading with the chin with big open wide gape. Infant latched optimally to the right breast in football position. Education given to mother of how to visualize suck/swallow ratios and drinking at the breast. was able to maintain latch without discomfort to mother with exception to uterine cramping. Nipple care reviewed with optimal latch and good positioning, comfort, healing with warm, wet washcloth to rinse breast, then leave open to air-dry, colostrum may be left on nipples to dry but have clean hands when touching the nipple/breast as needed. Mother voiced understanding of the education shared, calling for assistance if the infant does not latch or if there is discomfort with . Reported to the primary RN.
[2021-12-07] MEDS: RHO(D) IMMUNE GLOBULIN 300 MCG/2 ML SYRINGE IM (17:50)
[2021-12-07 19:30] VITALS: BP 107/62; PULSE 60; RESP 18; TEMP 36.3; O2SAT 100
[2021-12-07] MEDS: ursodioL 300 MG CAPSULE PO (21:14)
[2021-12-08 08:00] VITALS: BP 117/75; PULSE 65; RESP 18; TEMP 37.2; O2SAT 98
[2021-12-08] MEDS: ursodioL 300 MG CAPSULE PO (09:00)
[2021-12-08] MEDS: MULTIVIT/MIN/PREN/FOL AC/IRON TABLET 1 TAB PO (09:00)
[2021-12-08 10:05] VITALS: PULSE 65; RESP 18; O2SAT 98
--- NOTE | 2021-12-08 11:50 | PM.OBDSVD ---
DS: Admitting Diagnosis Discharge Date 12/08/21 Admitting Diagnosis IUP at 37w cholestasis of OB - DS: Summary OB Procedures : None OB Procedures Intrapartum: Spontaneous Vag Delivery OB Procedures: : None Time Spent with Patient Time attestation: Total time spent providing and/or coordinating discharge services: DS: Data Data Completed and Pending Pending studies at discharge: Pending at discharge 12/06/21 06:10 Surgical [PTH] Routine Labs on day of discharge: Labs from last 24 hours 12/07/21 03:17 Blood Type O Negative Antibody Screen TNP Screen Negative Baby's Blood Type O pos Baby's ROSALINE Positive Doses of RhIg Required 1 Discharge Plan Discharge Attending physician on discharge: Annette Chun Discharging Clinician: Annette Chun Anticipated Discharge Date/Time: 12/08/21 11:50 Patient Disposition: Home, Self-Care Activity: may shower, as tolerated and pelvic rest Diet: regular Discharge Instructions: Education: Mom and Baby Guide Given to: Mother Follow-Up: Call your delivering provider's office for an appointment to be seen in: 4-6 weeks Mom and baby should come to the [facility] for the follow-up appointment. Appointment Date/Time: December 11, 2021 at 10:00 am What to expect at your follow-up visit: Blood Pressure Check Physical Assessment Call [phone] if you are unable to keep your appointment time. BREAST CARE: * Wear a snug supportive bra. * For engorgement discomfort: Breast Feeding: * Apply warm moist washcloths * Express milk as needed to relieve engorgement * Wear loose clothing * For sore nipples: * Identify correct latch-on * Apply warm moist washcloths before and after nursing * Air dry nipples after nursing * May apply Lansinoh cream to nipples EPISIOTOMY/PERINEAL CARE: * Until bleeding stops, use your payam bottle after urinating * Change your pad frequently throughout the day * You may take sitz baths several times a day (fill your bathtub with warm water and soak for 20 minutes.) Do NOT bathe in the water * No tub baths until seen by your physician - You may shower ACTIVITY: * Rest as much as possible. * Do not exercise or lift anything heavier than your baby (such as laundry or other children.) * Avoid stairs or driving as much as possible. * Do not put anything into the vagina. No douching, tampons, or sexual activity until seen by physician. NOTIFY PHYSICIAN IF YOU HAVE ANY QUESTIONS OR IF ANY OF THE FOLLOWING SYMPTOMS OCCUR: * If your vaginal area becomes red, swollen, or more painful than what you have experienced in the hospital. * If your vaginal bleeding becomes foul smelling. * If your vaginal bleeding becomes more heavy than a period or if your bleeding changes from pink to bright red. However, you may pass an occasional walnut-sized clot once or twice for the first week . * If you experience a sharp, shooting pain in your calves. * If you discover a hard, reddened area on your breast or if you experience flu-like symptoms. DIET: * Eat regular, well-balanced meals. * Drink plenty of fluids daily. If , drink to thirst. Stand Alone Forms: General Discharge Information Follow-up/Referrals: Shiva Villegas MD [Physician] - Annette Chun MD [Physician] - Discharge Medications: Continued PNV [id number] 90 mg iron- 1 mg-200 mg capsule 1 cap PO DAILY Qty: 90 3RF ursodiol 300 mg capsule 300 mg PO BID Qty: 30 0RF No Action (DME) blood-glucose meter [OneTouch Verio Meter] Misc See Rx Instructions .Route Qty: 1 0RF Rx Instructions: As directed (DME) OneTouch Verio test strips Strip See Rx Instructions .Route Qty: 100 2RF Rx Instructions: As directed four times daily (DME) lancets [OneTouch Delica La
--- NOTE | 2021-12-08 11:51 | PM.OBPNVD ---
OB - PN: Subj Subjective Date/time seen: 12/08/21 8:00 Patient doing well this AM. Pain controlled with medication. Minimal lochia. Voiding well. Ambulating without difficulty. OB - PN: Obj Data Labs CBC & Chem 7: 12/07/21 03:17 12/05/21 12:48 Labs: Laboratory Results - last 24 hr 12/07/21 03:17 Blood Type O Negative Antibody Screen TNP Screen Negative Baby's Blood Type O pos Baby's ROSALINE Positive Doses of RhIg Required 1 OB - PN A/P Assessment and Plan (1) Delivery normal: Code(s): O80 - Encounter for full-term uncomplicated delivery Status: Acute Assessment and Plan: PPD#2 doing well dc home in stable condition emergency precautions reviewed f/u in office in 1-2 weeks Time Spent With Patient Time: Total time spent is greater than 50% in coordination of care (as documented) at patient's floor/unit and/or counseling patient: Exam Const: General: cooperative, healthy appearing, comfortable and no acute distress GI: Inspection: non-distended GI Palp: Yes Soft to palpation and No Tenderness to palpation present (GI) Other: fundus firm below umbilicus Extrem: Right lower extremity: no edema Left lower extremity: no edema Other: no calf tenderness
--- NOTE | 2021-12-08 15:19 | PC.NURSE ---
[id number] Mother led the conversation with her experience and plan to feed her so far and her ability to independently latch optimally without discomfort at times. Mother is going to continue with the plan of attempting to breastfeed and pump, then feed colostrum to if there is not effective . Reminded parents to use good handwashing technique to prevent infection. Mother is feeding appropriately for growth of and understands stimulating infant to eat if needed. Infant has had appropriate feedings in the last 24 hours meets the outcomes for weight, output and jaundice at this time. Mother states she is confident to continue effectively , pump, and supplement with breast milk her at home or when to call for assistance and denies any additional assistance or education at this time. Mother is agreeable to formula supplement if it is medically required in the future. Reinforced understanding of milk production, transition of milk, signs of adequate intake, prevention/relief of engorgement, responsive after visualizing feeding cues, the different methods of stimulating to breastfeed 2-3 hours after the start of the last feeding, community resources, medication information reviewed per [employer] and when to call a provider using the resource of the mom and baby guide/[facility] website. Mother voiced understanding of the education shared. Reported to the primary RN.
[2021-12-11 10:20] VITALS: BP 128/68; PULSE 77; RESP 20; TEMP 37.1; O2SAT 100
== END 2021-12-08 12:50 | disposition home or self-care (01) | DRG 805 ==
LOC: ANHOB2 12-08 11:51 → ANHLDR 12-12 09:38 → ANHOB2 12-12 09:38
PROVIDERS: Admitting Provider Obstetrics & Gynecology; PCP Family Medicine; Visit Provider Student in an Organized Health Care Education/Training Program
DX: O26.62 Liver and biliary tract disorders in childbirth (principal); K83.1 Obstruction of bile duct; Z37.0 Single live birth; O24.420 Gestational diabetes mellitus in childbirth, diet controlled; Z3A.38 38 weeks gestation of pregnancy; O69.1XX0 Labor and delivery complicated by cord around neck, with compression, not applicable or unspecified; O99.824 Streptococcus B carrier state complicating childbirth
CPT/HCPCS: 36415; 80053; 82948; 84075; 84450; 84460; 85014; 85018; 85025; 85461; 86592; 86850; 86900; 86901; 88307; 90384; A9270; J0290; J2590; J2790; J2795; J7120

== ENCOUNTER 2021-12-19 14:22 | Outpatient (CLI) | payer OTHER, SELFPAY ==
[2021-12-19 15:13] LABS: Alanine Aminotransferase 42 U/L (6-35); Albumin Level 4.4 g/dL (3.5-5.1); Alkaline Phosphatase 181 U/L (38-126); Aspartate Amino Transferase 32 U/L (14-36); Bilirubin,Total 0.9 mg/dL (0.2-1.3)
== END 2021-12-19 14:23 | disposition home or self-care (01) ==
LOC: ANHLAB 14:24
PROVIDERS: PCP Family Medicine; Visit Provider Obstetrics & Gynecology
DX: O26.613 Liver and biliary tract disorders in pregnancy, third trimester (principal); Z3A.38 38 weeks gestation of pregnancy
CPT/HCPCS: 36415; 80076

== ENCOUNTER 2022-06-22 08:54 | Outpatient (CLI) | payer OTHER, SELFPAY ==
[2022-06-22 11:45] LABS: Glucose 2 Hour PP 172 mg/dL (>=155)
== END 2022-06-22 08:55 | disposition home or self-care (01) ==
LOC: ANHLAB 08:55
PROVIDERS: PCP Family Medicine; Visit Provider Obstetrics & Gynecology
DX: O24.419 Gestational diabetes mellitus in pregnancy, unspecified control (principal); Z3A.00 Weeks of gestation of pregnancy not specified
CPT/HCPCS: 36415; 82947

== ENCOUNTER 2022-06-28 15:40 | Outpatient (CLI) | payer OTHER, SELFPAY ==
[2022-06-28 20:41] LABS: Hemoglobin A1C 5.5 % (<5.7)
[2022-06-28 21:06] LABS: Alanine Aminotransferase 20 U/L (6-35); Albumin Level 4.7 g/dL (3.5-5.1); Alkaline Phosphatase 129 U/L (38-126); Anion Gap 7 mmol/L (8-16); Aspartate Amino Transferase 31 U/L (14-36); Bilirubin,Total 1.2 mg/dL (0.2-1.3); Blood Urea Nitrogen 16 mg/dL (7-17); Calcium 9.2 mg/dL (8.4-10.2); Carbon Dioxide 29 mmol/L (22-30); Chloride 102 mmol/L (98-107); Cholesterol 163 mg/dL (0-200); Estimated Glomerular Filt Rate > 60; Glucose 85 mg/dL (65-110); HDL Direct 58 mg/dL; Sodium 138 mmol/L (137-145); Triglycerides 77 mg/dL (<150)
[2022-06-28 21:21] LABS: LDL Cholesterol Direct 76 mg/dL
== END 2022-06-28 15:41 | disposition home or self-care (01) ==
LOC: ANHGOSHLAB 15:41
PROVIDERS: PCP Family Medicine; Visit Provider Family Medicine
DX: E78.5 Hyperlipidemia, unspecified (principal)
CPT/HCPCS: 36415; 80053; 80061; 83036; 84443